=== PATIENT | female | born 1955 | race African-American/Black ===

== ENCOUNTER 2017-09-20 05:39 | Emergency (ER) | payer SELFPAY, BC ==
[2017-09-20] MEDS: CYCLOBENZAPRINE 10 MG TABLET. PO (06:35)
[2017-09-20] MEDS: ONDANSETRON ODT 4 MG TAB.RAPDIS. PO (06:35)
[2017-09-20] MEDS: MORPHINE SULFATE 10 MG/ML VIAL. IM (06:35)
== END 2017-09-20 07:25 | disposition home or self-care (01) ==
LOC: ER 05:39
DX: M54.42 Lumbago with sciatica, left side (principal); K21.9 Gastro-esophageal reflux disease without esophagitis; I10 Essential (primary) hypertension; Z90.49 Acquired absence of other specified parts of digestive tract
CPT/HCPCS: 96372; 99283; J2270; Q0162